=== PATIENT | male | born 1960 | race Caucasian/White ===

== ENCOUNTER 2022-11-03 07:49 | Emergency (ER) | payer OTHER ==
[2022-11-03] MEDS ORDERED: Sodium Chloride 0.9% 10 ML Syringe FLUSH PRN (08:17)
[2022-11-03] MEDS ORDERED: Nitroglycerin 0.4 MG Tab.SL SL PRN (08:17)
[2022-11-03] MEDS ORDERED: Morphine 4 MG/ML Syringe IVPUSH PRN (08:17)
[2022-11-03] MEDS ORDERED: Aspirin 81 MG Tab.Chew PO ONE (08:17)
[2022-11-03] MEDS ORDERED: LORazepam 2 MG/ML SDV IVPUSH ONE (08:47)
[2022-11-03] MEDS ORDERED: Ondansetron 4 MG/2 ML SDV IVPUSH ONE (08:58)
[2022-11-03] MEDS ORDERED: Sodium Chloride 0.9% 1,000 ML IV SCH (09:00)
== END 2022-11-03 11:37 | disposition home or self-care (01) ==
LOC: JP.ED 07:49
DX: R07.89 Other chest pain (principal); I25.10 Atherosclerotic heart disease of native coronary artery without angina pectoris; E78.00 Pure hypercholesterolemia, unspecified; I10 Essential (primary) hypertension; I25.2 Old myocardial infarction; E11.9 Type 2 diabetes mellitus without complications; Z88.8 Allergy status to other drugs, medicaments and biological substances; Z79.82 Long term (current) use of aspirin; Z79.02 Long term (current) use of antithrombotics/antiplatelets; Z79.84 Long term (current) use of oral hypoglycemic drugs; Z79.899 Other long term (current) drug therapy; Z86.16 Personal history of COVID-19
CPT/HCPCS: 36415; 71045; 80048; 82947; 84484; 85025; 93005; 96361; 96374; 96375; 99285; A9270; J2060; J2405; J7030; 93010; 99284

== ENCOUNTER 2024-12-18 08:36 | Emergency (ER) | payer OTHER ==
[2024-12-18 08:57] LABS: PROTHROMBIN TIME 9.9 sec (9.2-10.6)
[2024-12-18 08:59] LABS: BASOPHILS ABSOLUTE AUTO 0.03 K/uL (0.00-0.10); BASOPHILS PERCENT AUTO 0.4 % (0.1-1.3); EOSINOPHILS PERCENT AUTO 4.3 % (0.0-5.4); HEMATOCRIT 43.3 % (38.4-49.7); IMMATURE GRAN ABSOLUTE AUTO 0.02 K/uL (0.00-0.23); IMMATURE GRAN PERCENT AUTO 0.3 % (0.0-0.7); LYMPHOCYTES ABSOLUTE AUTO 1.66 K/uL (0.8-3.3); LYMPHOCYTES PERCENT AUTO 23.5 % (11.4-47.7); MEAN CORPUSCULAR HEMOGLOBIN 29.9 pg (31.6-35.5); MEAN CORPUSCULAR HGB CONC 34.6 g/dL (31.6-35.5); MEAN CORPUSCULAR VOLUME 86.4 fL (81.4-99.0); MONOCYTES ABSOLUTE AUTO 0.69 K/uL (0.20-0.90); MONOCYTES PERCENT AUTO 9.8 % (3.3-12.6); NEUTROPHILS ABSOLUTE AUTO 4.35 K/uL (1.0-7.6); NEUTROPHILS PERCENT AUTO 61.7 % (40.0-78.1); PLATELET COUNT,PLT 191 K/uL (130-375); RED BLOOD CELL COUNT 5.01 M/uL (4.14-5.76); WHITE BLOOD CELL COUNT,WBC 7.1 K/uL (3.2-11.0)
[2024-12-18] MEDS: Famotidine 20 MG/2 ML SDV IVPUSH ONE (09:05)
[2024-12-18] MEDS: Sodium Chloride 0.9% 1,000 ML IV ONE (09:05)
[2024-12-18] MEDS: Ondansetron 4 MG/2 ML SDV IVPUSH ONE (09:05)
[2024-12-18] MEDS: Nitroglycerin 0.4 MG Tab.SL SL PRN (09:06)
[2024-12-18] MEDS: Aspirin 81 MG Tab.Chew PO ONE (09:06)
[2024-12-18 09:08] LABS: A/G RATIO 1.3 (1.2-2.2); ALANINE AMINOTRANSFERASE,ALT 57 U/L (12-78); ALBUMIN 4.2 g/dL (3.4-5.0); ALKALINE PHOSPHATASE 87 U/L (46-116); ASPARTATE AMNIOTRANSFERASE,AST 34 U/L (15-37); BILIRUBIN TOTAL 0.8 mg/dL (0.2-1.0); BLOOD UREA NITROGEN,BUN 22 mg/dL (7-18); CALCIUM 9.2 mg/dL (8.5-10.1); CARBON DIOXIDE,CO2 30 mmol/L (21-32); CHLORIDE,CL 104 mmol/L (100-108); CREATININE 1.1 mg/dL (0.8-1.3); EST CRCL DRUG DOSING (CG) 76.67 mL/min; ESTIMATED GFR 75 mL/min (>60); GLUCOSE RANDOM 169 mg/dL (74-106); POTASSIUM,K 4.1 mmol/L (3.6-5.2); PRO B-TYPE NATRIUR PEPT,BNPPRO 112 pg/mL (5-125); PROTEIN TOTAL,TP 7.5 g/dL (6.4-8.2); SODIUM,NA 143 mmol/L (140-148); TROPONIN I HIGH SENSITIVITY 13.8 pg/mL (<=60.3)
[2024-12-18] MEDS: Heparin Sodium/D5W 25,000 UNITS/500 ML BAG IV SCH (12:00)
[2024-12-18] MEDS ORDERED: Sodium Chloride 0.9% 1,000 ML IV ONE (13:03)
[2024-12-18] MEDS ORDERED: Naloxone 0.4 MG/ML SDV IVPUSH PRN (13:26)
[2024-12-18] MEDS: Morphine 2 MG/ML SYRINGE IVPUSH ONE (13:35)
== END 2024-12-18 13:45 | disposition critical access hospital (66) ==
LOC: JP.ED 08:36
DX: I25.110 Atherosclerotic heart disease of native coronary artery with unstable angina pectoris (principal); I25.2 Old myocardial infarction; I10 Essential (primary) hypertension; E78.00 Pure hypercholesterolemia, unspecified; E11.9 Type 2 diabetes mellitus without complications; R06.9 Unspecified abnormalities of breathing; Z86.16 Personal history of COVID-19; Z88.8 Allergy status to other drugs, medicaments and biological substances; Z79.82 Long term (current) use of aspirin; Z79.84 Long term (current) use of oral hypoglycemic drugs; Z79.899 Other long term (current) drug therapy
CPT/HCPCS: 36415; 71045; 80053; 83880; 84484; 85025; 85610; 93005; 96361; 96365; 96366; 96375; 99285; A9270; J1644; J2270; J2405